=== PATIENT | male | born 1965 ===

== ENCOUNTER 2016-12-28 16:32 | Emergency (ER) | payer OTHER ==
[2016-12-28 16:32] VITALS: BMI 32.8
[2016-12-28 16:42] VITALS: BP 147/106; PULSE 102; RESP 18; TEMP 97.9; O2SAT 98
--- NOTE | 2016-12-28 17:51 | ED PDOC ---
HPI: SOB/CHF/COPD Time Seen by Provider: 12/28/16 17:01 Chief Complaint (Nursing): Shortness Of Breath Chief Complaint (Provider): Shortness Of Breath History Per: Patient History/Exam Limitations: no limitations Onset/Duration Of Symptoms: Days (x2 weeks) Current Symptoms Are (Timing): Still Present Additional Complaint(s): 51 y/o male presents to the emergency department with a complaint of experiencing occasional shortness of breath x2 weeks. Reports he noticed his blood pressure elevated after he stopped taking blood pressure medications about 6 months ago due to insurance complications. Denies acute symptoms such as chest pain, headache, or dizziness. Past Medical History Reviewed: Historical Data, Nursing Documentation, Vital Signs Vital Signs: Last Vital Signs Temp 97.9 F 12/28/16 16:39 Pulse 102 H 12/28/16 16:39 Resp 18 12/28/16 17:42 BP 147/106 H 12/28/16 16:39 Pulse Ox 98 12/28/16 18:29 - Medical History PMH: HTN (noncompliant with meds), Kidney Stones - Surgical History Surgical History: No Surg Hx - Family History Family History: States: Unknown Family Hx - Social History Current smoker - smoking cessation education provided: No Alcohol: Social Drugs: Denies - Immunization History Hx Tetanus Toxoid Vaccination: No Hx Influenza Vaccination: No Hx Pneumococcal Vaccination: No - Home Medications Home Medications: Ambulatory Orders Medication Instructions Recorded Hydrochlorothiazide [HCTZ] 25 mg PO DAILY #30 05/31/15 Losartan [Cozaar] 25 mg PO DAILY #30 tab 05/31/15 Enalapril Maleate [Vasotec] 10 mg PO DAILY #30 tab 12/28/16 - Allergies Allergies/Adverse Reactions: Allergies Allergy/AdvReac Type Severity Reaction Status Date / Time No Known Allergies Allergy Verified 05/31/15 19:48 Review of Systems ROS Statement: Except As Marked, All Systems Reviewed And Found Negative Cardiovascular: Negative for: Chest Pain Respiratory: Positive for: Shortness of Breath Neurological: Negative for: Headache, Dizziness Physical Exam - Reviewed Nursing Documentation Reviewed: Yes Vital Signs Reviewed: Yes - Physical Exam Appears: Positive for: Non-toxic, No Acute Distress Head Exam: Positive for: ATRAUMATIC, NORMAL INSPECTION, NORMOCEPHALIC Skin: Positive for: Normal Color, Warm, Dry Neck: Positive for: Normal, Supple Cardiovascular/Chest: Positive for: Regular Rate, Rhythm. Negative for: Murmur Respiratory: Positive for: Normal Breath Sounds. Negative for: Accessory Muscle Use, Respiratory Distress Gastrointestinal/Abdominal: Positive for: Normal Exam, Soft. Negative for: Tenderness Extremity: Positive for: Normal ROM. Negative for: Pedal Edema Neurologic/Psych: Positive for: Alert, Oriented - Laboratory Results Result Diagrams: 12/28/16 17:56 12/28/16 17:56 - ECG O2 Sat by Pulse Oximetry: 98 (RA) Pulse Ox Interpretation: Normal Medical Decision Making Medical Decision Making: Time: 17:42 Initial impression: Shortness of breath Initial plan: --Electrocardiogram STAT --COMP Metabolic Panel --EKG-ED --CBC w/ differential --Chest Two Views (PA/LAT) (RAD) --Reevaluation Scribe Attestation: Documented by Haily Pritchett, acting as a scribe for Vaughn Bowen MD. Provider Scribe Attestation: All medical record entries made by the Scribe were at my direction and personally dictated by me. I have reviewed the chart and agree that the record accurately reflects my personal performance of the history, physical exam, medical decision making, and the department course for this patient. I have also personally directed, reviewed, and agree with the discharge instructions and disposition. Disposition - Clinical Impression Clinical Impression: Hypertension - Patient ED Disposition Is Patient to be Admitted: No - Disposition [facility]errals: [facility] [Outside] Disposition: Routine/Home Disposition Time: 18:26 Condition: FAIR Prescriptions: Enalapril Maleate [Vasotec] 10 mg PO DAILY #30 tab Instructions: Hypertension (ED)
[2016-12-28 18:01] LABS: BASO % 0.2 % (0.0-2.0); EOS # 0.2 K/uL (0.0-0.7); EOS % 2.2 % (0.0-4.0); LYMPH # 1.8 K/uL (1.0-4.3); LYMPH % 21.9 % (20.0-40.0); MEAN CELL VOLUME 88.3 fl (80.0-94.0); MEAN CORPUSCULAR HEMOGLOBIN 29.4 pg (27.0-31.0); MEAN CORPUSCULAR HGB CONC 33.3 g/dL (33.0-37.0); MONO # 0.9 K/uL (0.0-0.8); NEUT # 5.2 K/uL (1.8-7.0); NEUT % 64.7 % (50.0-75.0); RBC 4.77 Mil/uL (4.40-5.90); RED CELL DISTRIBUTION WIDTH 13.9 % (11.5-14.5)
[2016-12-28 18:17] LABS: ALB/GLOB RATIO 1.2 (1.0-2.1); ALT/SGPT 60 U/L (21-72); AST/SGOT 40 U/L (17-59); BLOOD UREA NITROGEN 17 mg/dl (9-20); CALCIUM 8.9 mg/dL (8.4-10.2); GFR AFRICAN-AMERICAN > 60; GFR NON-AFRICAN AMERICAN > 60
--- NOTE | 2016-12-29 12:45 | RAD ---
HISTORY: HTN COMPARISON: Which lacune in degree TECHNIQUE: Chest PA and lateral FINDINGS: LUNGS: No active pulmonary disease. PLEURA: No significant pleural effusion identified. No pneumothorax apparent. CARDIOVASCULAR: No radiographic findings to suggest acute or significant cardiovascular disease. OSSEOUS STRUCTURES: No significant abnormalities. VISUALIZED UPPER ABDOMEN: Normal. OTHER FINDINGS: None. IMPRESSION: No active disease.
--- NOTE | 2016-12-29 18:00 | CARD ---
APPROVED REPORT EKG Measurement Heart [id number] <Conclusion> Normal sinus rhythm Normal ECG
== END 2016-12-28 19:24 | disposition home or self-care (01) ==
LOC: H.ER 16:32
DX: I10 Essential (primary) hypertension (principal); R06.02 Shortness of breath; Z91.14 Patient's other noncompliance with medication regimen